=== PATIENT | male | born 1960 | race Caucasian/White ===

== ENCOUNTER 2021-06-28 01:04 | Emergency (ER) | payer OTHER, MEDICAID ==
[~2021-06-28] VITALS: Ht 180.3 cm; Wt 124.7 kg
[2021-06-28 01:12] VITALS: BP 154/86
--- NOTE | 2021-06-28 01:12 | NUR ---
BIBA TAKEN TO BED #9
[2021-06-28] MEDS ORDERED: ONDANSETRON 4 MG ODT PO ONE (03:00)
[2021-06-28] MEDS ORDERED: NACL 0.9% 1,000 ML IV ONE (03:15)
[2021-06-28] MEDS ORDERED: ONDA8TAB87 PO (03:26)
--- NOTE | 2021-06-28 03:35 | NUR ---
PATIENT CLEARED FOR DISHCARGE AT THIS TIME. NO OTHER COMLAINTS OR CONCERNS FOLLOWIN DISHCARGE TEACHING. AT BEDSIDE, PENDING PATIENT COMPLETION OF IVF
[2021-06-28 04:09] VITALS: BP 134/81
== END 2021-06-28 03:35 | disposition home or self-care (01) ==
LOC: MED 01:04
DX: F10.129 Alcohol abuse with intoxication, unspecified (principal); J44.9 Chronic obstructive pulmonary disease, unspecified; Y90.9 Presence of alcohol in blood, level not specified
CPT/HCPCS: 96360; 99283; J7030; Q0162; 96372

== ENCOUNTER 2024-02-09 08:48 | Emergency (ER) | payer OTHER ==
[~2024-02-09] VITALS: Ht 177.8 cm; Wt 111.1 kg
[~2024-02-09 08:48] MED LIST: ATOR10TA51; BECL10.62; CHOL200035; LISI10TA30; SEMA0.5P; TAM75 PO; albuterol
[2024-02-09 09:00] VITALS: BP 171/101; PULSE 90; RESP 22; TEMP 98.1; O2SAT 94
[2024-02-09 09:15] VITALS: PULSE 79; RESP 16; O2SAT 95
[2024-02-09] MEDS: ALBUTEROL SULFATE/IPRATROPIU 3 ML SOL IH ONE (09:15)
[2024-02-09] MEDS ORDERED: PRED20TA5 PO (11:17)
[2024-02-09] MEDS ORDERED: ALBU0.0912 INH (11:17)
[2024-02-09 11:39] VITALS: BP 148/83; PULSE 71; RESP 18; TEMP 98.1; O2SAT 95
== END 2024-02-09 11:39 | disposition home or self-care (01) ==
LOC: MED 08:48
DX: J06.9 Acute upper respiratory infection, unspecified (principal); J45.901 Unspecified asthma with (acute) exacerbation; E11.9 Type 2 diabetes mellitus without complications; I10 Essential (primary) hypertension; Z79.899 Other long term (current) drug therapy
CPT/HCPCS: 93005; 94640; 99283